=== PATIENT | female | born 1985 | race Two or more races ===

== ENCOUNTER 2018-09-11 06:31 | Emergency (ER) | payer OTHER ==
[~2018-09-11] VITALS: Ht 162.6 cm; Wt 117.9 kg
[2018-09-11] MEDS ORDERED: IV NORMAL SALINE 1000ML BAG 1,000 ML IV ONE (07:00)
[2018-09-11] MEDS ORDERED: ONDANSETRON PF 4 MG/2 ML VIAL. IV ONE (07:00)
[2018-09-11 07:17] VITALS: BP 105/59
[2018-09-11 07:22] LABS: BASO % 0 % (0-3); EOS % 0 % (0-3); HEMATOCRIT 37.7 % (36.0-47.0); HEMOGLOBIN 13.3 g/dL (12.0-15.5); LYMPH # 0.7 x10^3/uL (1.0-4.8); LYMPH % 5 % (24-48); MEAN CORPUSCULAR HEMOGLOBIN 30 pg (25-35); MEAN CORPUSCULAR HGB CONC 35 g/dL (31-37); MEAN CORPUSCULAR VOLUME 85 fL (79-100); MONO # 0.7 x10^3/uL (0.0-1.1); MONO % 5 % (0-9); NEUT # 11.4 x10^3uL (1.8-7.7); NEUT % 89 % (31-73); PLATELET COUNT 309 x10^3/uL (140-400); RED BLOOD COUNT 4.43 x10^6/uL (3.50-5.40); RED CELL DISTRIBUTION WIDTH 13.7 % (11.5-14.5); WHITE BLOOD COUNT 12.8 x10^3/uL (4.0-11.0)
[2018-09-11 07:24] LABS: BILIRUBIN,URINE NEGATIVE (NEG); CLARITY,URINE CLEAR; COLOR,URINE YELLOW; NITRITE,URINE NEGATIVE (NEG); PROTEIN,URINE NEGATIVE (NEG-TRACE); UROBILINOGEN,URINE 0.2 mg/dL (0.2 mg/dL)
[2018-09-11 07:31] LABS: U PREG PATIENT NEGATIVE (NEG)
[2018-09-11 07:34] LABS: CALCIUM 8.3 mg/dL (8.5-10.1); CREATININE 0.8 mg/dL (0.6-1.0); GFR 83.7; POTASSIUM 3.9 mmol/L (3.5-5.1)
[2018-09-11 07:39] LABS: ALBUMIN 3.5 g/dL (3.4-5.0); ALBUMIN/GLOBULIN RATIO 0.8 (1.0-1.7); TOTAL BILIRUBIN 0.3 mg/dL (0.2-1.0); TOTAL PROTEIN 7.9 g/dL (6.4-8.2)
[2018-09-11 07:40] LABS: BACTERIA,URINE FEW /HPF (0-FEW); RBC,URINE OCC /HPF (0-2); SQUAMOUS EPITHELIAL CELL,UR FEW /LPF
[2018-09-11] MEDS ORDERED: ONDA4TAB7 PO (08:17)
--- NOTE | 2018-09-11 08:18 | PHYS DOC ---
Past Medical History Past Medical History: No Pertinent History Past Surgical History: Cholecystectomy Alcohol Use: None Drug Use: None Adult General Chief Complaint Chief Complaint: ABDOMINAL PAIN HPI HPI 33-year-old otherwise healthy female presents with a 12 hour history of intractable nausea vomiting and diarrhea. She states she's been having pretty severe abdominal cramps. She denies any melena hematochezia or hematemesis. She denies any fever chills or sweats. She states the abdominal cramping is primarily in her epigastric area and does not radiate anywhere. No one else in the house has been sick.[] Review of Systems Review of Systems Constitutional: Denies fever or chills [] Eyes: Denies change in visual acuity, redness, or eye pain [] HENT: Denies nasal congestion or sore throat [] Respiratory: Denies cough or shortness of breath [] Cardiovascular: No additional information not addressed in HPI [] GI: Per history of present illness[] : Denies dysuria or hematuria [] Musculoskeletal: Denies back pain or joint pain [] Integument: Denies rash or skin lesions [] Neurologic: Denies headache, focal weakness or sensory changes [] Endocrine: Denies polyuria or polydipsia [] All other systems were reviewed and found to be within normal limits, except as documented in this note. Current Medications Current Medications Current Medications Medications (Trade) Dose Ordered Sig/Miller Start Time Stop Time Status Last Admin Dose Admin Ondansetron HCl (Zofran) 4 mg 1X ONCE 09/11/18 07:00 09/11/18 07:06 DC 09/11/18 07:20 4 MG Sodium Chloride 1,000 ml @ 1,000 mls/hr 1X ONCE 09/11/18 07:00 09/11/18 07:59 DC 09/11/18 07:20 1,000 MLS/HR Allergies Allergies Allergies Coded Allergies Type Severity Reaction Last Updated Verified No Known Drug Allergies 10/24/14 No Physical Exam Physical Exam Constitutional: Well developed, well nourished, mild distress, non-toxic appearance. [] HENT: Normocephalic, atraumatic, bilateral external ears normal, oropharynx moist, no oral exudates, nose normal. [] Eyes: PERRLA, EOMI, conjunctiva normal, no discharge. [] Neck: Normal range of motion, no tenderness, supple, no stridor. [] Cardiovascular:Heart rate regular rhythm, no murmur [] Lungs & Thorax: Bilateral breath sounds clear to auscultation [] Abdomen: Bowel sounds normal, soft, no tenderness, no masses, no pulsatile masses. [] Skin: Warm, dry, no erythema, no rash. [] Back: No tenderness, no CVA tenderness. [] Extremities: No tenderness, no cyanosis, no clubbing, ROM intact, no edema. [] Neurologic: Alert and oriented X 3, normal motor function, normal sensory function, no focal deficits noted. [] Psychologic: Anxious[] Current Patient Data Vital Signs Vital Signs Date Time Temp Pulse Resp B/P (MAP) Pulse Ox O2 Delivery O2 Flow Rate FiO2 09/11/18 07:17 78 16 105/59 (74) 96 Room Air 09/11/18 06:38 98.9 98.9 Lab Values Laboratory Tests Test 09/11/18 06:35 09/11/18 06:50 Urine Collection Type Unknown Urine Color Yellow Urine Clarity Clear Urine pH 8.0 Urine Specific [place] 1.025 Urine Protein Negative mg/dL (NEG-TRACE) Urine Glucose (UA) Negative mg/dL (NEG) Urine Ketones (Stick) Negative mg/dL (NEG) Urine Blood Negative (NEG) Urine Nitrite Negative (NEG) Urine Bilirubin Negative (NEG) Urine Urobilinogen Dipstick 0.2 mg/dL (0.2 mg/dL) Urine Leukocyte Esterase Negative (NEG) Urine RBC Occ /HPF (0-2) Urine WBC 1-4 /HPF (0-4) Urine Squamous Epithelial Cells Few /LPF Urine Bacteria Few /HPF (0-FEW) Urine Mucus Slight /LPF Urine Test Negative (NEG) White Blood Count 12.8 x10^3/uL (4.0-11.0) H Red Blood Count 4.43 x10^6/uL (3.50-5.40) Hemoglobin 13.3 g/dL (12.0-15.5) Hematocrit 37.7 % (36.0-47.0) Mean Corpuscular Volume 85 fL (79-100) Mean Corpuscular Hemoglobin 30 pg (25-35) Mean Corpuscular Hemoglobin Concent 35 g/dL (31-37) Red Cell Distribution Width 13.7 % (11.5-14.5) Platelet Count 309 x10^3/uL (140-400) Neutrophils (%) (Auto) 89 % (31-73) H Lymphocytes (%) (Auto) 5 % (24-48) L Monocytes (%) (Auto) 5 % (0-9) Eosinophils (%) (Auto) 0 % (0-3) Basophils (%) (Auto) 0 % (0-3) Neutrophils # (Auto) 11.4 x10^3uL (1.8-7.7) H Lymphocytes # (Auto) 0.7 x10^3/uL (1.0-4.8) L Monocytes # (Auto) 0.7 x10^3/uL (0.0-1.1) Eosinophils # (Auto) 0.0 x10^3/uL (0.0-0.7) Basophils # (Auto) 0.0 x10^3/uL (0.0-0.2) Platelet Estimate Pending Sodium Level 138 mmol/L (136-145) Potassium Level 3.9 mmol/L (3.5-5.1) Chloride Level 102 mmol/L (98-107) Carbon Dioxide Level 24 mmol/L (21-32) Anion Gap 12 (6-14) Blood Urea Nitrogen 17 mg/dL (7-20) Creatinine 0.8 mg/dL (0.6-1.0) Estimated GFR (Cockcroft-Gault) 83.7 BUN/Creatinine Ratio 21 (6-20) H Glucose Level 132 mg/dL (70-99) H Calcium Level 8.3 mg/dL (8.5-10.1) L Total Bilirubin 0.3 mg/dL (0.2-1.0) Aspartate Amino Transferase (AST) 20 U/L (15-37) Alanine Aminotransferase (ALT) 22 U/L (14-59) Alkaline Phosphatase 93 U/L (46-116) Total Protein 7.9 g/dL (6.4-8.2) Albumin 3.5 g/dL (3.4-5.0) Albumin/Globulin Ratio 0.8 (1.0-1.7) L Lipase 95 U/L (73-393) Laboratory Tests 09/11/18 06:50 Laboratory Tests 09/11/18 06:50 EKG EKG [] Radiology/Procedures Radiology/Procedures [] Course & Med Decision Making Course & Med Decision Making Pertinent Labs and Imaging studies reviewed. (See chart for details) [ED course: Evaluation reveals a 33-year-old female with nausea vomiting and diarrhea. She was given IV fluids and IV Zofran during her stay in the department which did help alleviate her symptoms. On reexamination approximately 90 minutes after arrival she stated she felt much better and wanted to go home. Her laboratory studies were reviewed and were all within normal limits.] Dragon Disclaimer Dragon Disclaimer This electronic medical record was generated, in whole or in part, using a voice recognition dictation system. Departure Departure Impression: Primary Impression: Gastroenteritis Disposition: 01 HOME, SELF-CARE Condition: IMPROVED Referrals: JUANITA MOCK (PCP) Patient Instructions: Viral Gastroenteritis Additional Instructions: Return to the emergency department with any new or concerning symptoms Scripts Ondansetron Hcl (ZOFRAN) 4 Mg Tablet 1 TAB PO Q8HRS PRN for NAUSEA, #20 TAB Prov: DEON HANEY DO 09/11/18 DEON HANEY DO Sep 11, 2018 08:18
[2018-09-11 09:24] LABS: % BANDS 25 % (0-9); % LYMPHS 10 % (24-48); % MONOS 10 % (0-10); % SEGS 55 % (35-66)
[2018-09-11 09:25] LABS: PLT ESTIMATE ADEQUATE (ADEQUATE)
== END 2018-09-11 08:26 | disposition home or self-care (01) ==
LOC: ER 06:31
DX: K52.9 Noninfective gastroenteritis and colitis, unspecified (principal)
CPT/HCPCS: 36415; 80053; 81001; 81025; 83690; 85007; 85025; 96361; 96374; 99283; J2405; J7030

== ENCOUNTER 2019-10-25 22:06 | Emergency (ER) | payer OTHER ==
[~2019-10-25] VITALS: Ht 162.6 cm; Wt 113.6 kg
[~2019-10-25 22:06] MED LIST: ONDA4TAB7 PO
[2019-10-25 22:24] VITALS: BP 110/66
--- NOTE | 2019-10-26 00:48 | PHYS DOC ---
Past Medical History Past Medical History: Migraines Past Surgical History: Cholecystectomy Smoking Status: Never Smoker Alcohol Use: None Drug Use: None Adult General Chief Complaint Chief Complaint: HEADACHE HPI HPI Patient is a 34 year old female patient presenting to the ED today complaining of mild intermittent left occipital headaches that have been going on for 1-1/2 months. Patient reports using Tylenol and Motrin with minimal relief. Denies any nausea vomiting. Denies any photophobia but states eliminating the lights relieves some of the headache. She reports previous history of migraine headaches when she was a teenager. She reports she has communicated with her own PCP and has an appointment on Tuesday. Patient denies this being the worst headache in her life. She reports her headache is actually better since she's been waiting in the waiting room. Review of Systems Review of Systems Constitutional: Denies fever or chills [] Eyes: Denies change in visual acuity, redness, or eye pain [] HENT: Denies nasal congestion or sore throat [] Respiratory: Denies cough or shortness of breath [] Cardiovascular: No additional information not addressed in HPI [] GI: Denies abdominal pain, nausea, vomiting, bloody stools or diarrhea [] : Denies dysuria or hematuria [] Musculoskeletal: Denies back pain or joint pain [] Integument: Denies rash or skin lesions [] Neurologic: Reports headache, denies focal weakness or sensory changes [] All other systems were reviewed and found to be within normal limits, except as documented in this note. Current Medications Current Medications Current Medications Medications (Trade) Dose Ordered Sig/Miller Start Time Stop Time Status Last Admin Dose Admin Ketorolac Tromethamine (Toradol Im) 60 mg 1X ONCE 10/26/19 01:00 10/26/19 01:01 Methylprednisolone Sodium Succinate (SOLU-Medrol 125MG VIAL) 125 mg 1X ONCE 10/26/19 01:00 10/26/19 01:01 Ondansetron HCl (Zofran Odt) 4 mg 1X ONCE 10/26/19 01:00 10/26/19 01:01 Allergies Allergies Allergies Coded Allergies Type Severity Reaction Last Updated Verified No Known Drug Allergies 10/24/14 No Physical Exam Physical Exam Constitutional: Well developed, well nourished, no acute distress, non-toxic appearance. [] HENT: Normocephalic, atraumatic, bilateral external ears normal, oropharynx moist, no oral exudates, nose normal. [] Eyes: PERRLA, EOMI, conjunctiva normal, no discharge. [] Neck: Normal range of motion, no tenderness, supple, no stridor. [] Cardiovascular:Heart rate regular rhythm, no murmur [] Lungs & Thorax: Bilateral breath sounds clear to auscultation [] Abdomen: Bowel sounds normal, soft, no tenderness, no masses, no pulsatile masses. [] Skin: Warm, dry, no erythema, no rash. [] Back: No tenderness, no CVA tenderness. [] Extremities: No tenderness, no cyanosis, no clubbing, ROM intact, no edema. [] Neurologic: Alert and oriented X 3, normal motor function, normal sensory function, no focal deficits noted. Cranial nerves II through XII intact Psychologic: Affect normal, judgement normal, mood normal. [] Current Patient Data Vital Signs Vital Signs Date Time Temp Pulse Resp B/P (MAP) Pulse Ox O2 Delivery O2 Flow Rate FiO2 10/25/19 22:24 97.8 68 20 110/66 (81) 96 Room Air 97.8 Lab Values Laboratory Tests Test 10/25/19 22:55 POC Urine HCG, Qualitative Hcg negative (Negative) EKG EKG [] Radiology/Procedures Radiology/Procedures [] Course & Med Decision Making Course & Med Decision Making Pertinent Labs and Imaging studies reviewed. (See chart for details) This is a 34-year-old female patient presenting to the ED today with intermittent headaches for 1-1/2 months. Has history of migraine headaches. Patient find as is stable. Neurologically she is intact. She has follow-up with her PCP on Tuesday. She'll be given Toradol and Solu-Medrol and Zofran in the ED and discharged with instructions to continue taking ibuprofen or Tylenol at home until seen by the PCP on Tuesday next week. Dragon Disclaimer Dragon Disclaimer This electronic medical record was generated, in whole or in part, using a voice recognition dictation system. Departure Departure Impression: Primary Impression: Headache Disposition: HOME, SELF-CARE Condition: STABLE Referrals: BERTRAND CAUSEY DO (PCP) Follow up next week Patient Instructions: Headache, FAQs Additional Instructions: You were evaluated in the emergency room for a headache. Continue taking Tylenol/Motrin as needed for your pain. As discussed you can also take Benadryl every 6 hours for this kind of headaches. Follow-up with your doctor next week as scheduled Problem Qualifiers Primary Impression: Headache Headache type: unspecified Headache chronicity pattern: acute headache Intractability: not intractable Qualified Codes: R51 - Headache JUSTINChacortaBRADLEY GARCIA Oct 26, 2019 00:48
[2019-10-26] MEDS ORDERED: KETOROLAC 60 MG/2 ML VIAL. IM ONE (01:00)
[2019-10-26] MEDS ORDERED: ONDANSETRON ODT 4 MG TAB.RAPDIS. PO ONE (01:00)
[2019-10-26] MEDS ORDERED: methylPREDNISolone SOD SUCC PF 125 MG/2 ML VIAL. IM ONE (01:00)
== END 2019-10-26 01:10 | disposition home or self-care (01) ==
LOC: ER 22:06
DX: G43.909 Migraine, unspecified, not intractable, without status migrainosus (principal)
CPT/HCPCS: 81025; 96372; 99284; J1885; J2930; Q0162